=== PATIENT | female | born 1975 | race Two or more races ===

== ENCOUNTER 2019-04-16 09:25 | Emergency (ER) | payer OTHER ==
[2019-04-16] MEDS ORDERED: ONDANSETRON HCL INJ/PF 4 MG/2 ML SDV IV ONE (09:54)
[2019-04-16] MEDS ORDERED: NORMAL SALINE 1000 ML 1,000 ML IV ONE (09:54)
[2019-04-16] MEDS ORDERED: FAMOTIDINE INJ/PF 20 MG/2 ML SDV IV ONE (09:54)
--- NOTE | 2019-04-16 09:57 | ER Document Report ---
ED Medical Screen (RME) - General Chief Complaint: Vomiting Stated Complaint: VOMITING Time Seen by Provider: 04/16/19 09:47 Notes: Patient is a 43-year-old female with a history of hypertension, herniated disc, TBI, anxiety, depression who presents to the emergency department with a chief complaint of vomiting. Patient states she has vomited 4-5 times per day since Wednesday. Patient states she does not have any sick contacts. Patient states that every time she attempts to eat or drink she vomits. Patient denies diarrhea. Patient denies fever. Patient states she has had chills. Patient reports generalized abdominal pain. Patient denies urinary symptoms. Patient states she has noted very small streaks of blood in the vomit. She states she feels like this is from her irritated throat and denies blood clots or large amounts of blood in the emesis. TRAVEL OUTSIDE OF THE [place] IN LAST 30 DAYS: No - Related Data Allergies/Adverse Reactions: No Known Allergies Allergy (Verified 04/16/19 09:25) Past Medical History - Social History Chew tobacco use (# tins/day): No Frequency of alcohol use: None Drug Abuse: None - Past Medical History Cardiac Medical History: Reports: Hx Hypertension Pulmonary Medical History: Denies: Hx Tuberculosis Renal/ Medical History: Denies: Hx Peritoneal Dialysis Musculoskeltal Medical History: Reports Hx Musculoskeletal Trauma Psychiatric Medical History: Denies: Hx Depression Traumatic Medical History: Reports: Hx Traumatic Brain Injury Past Surgical History: Reports: Hx Gynecologic Surgery - ovarian cyst - Immunizations Hx Diphtheria, Pertussis, Tetanus Vaccination: Yes Physical Exam - Vital signs Vitals: Temp Pulse Resp BP Pulse Ox 98.3 F 104 H 17 133/100 H 97 04/16/19 09:31 04/16/19 09:31 04/16/19 09:31 04/16/19 09:31 04/16/19 09:31 - Respiratory Respiratory status: No respiratory distress Chest status: Nontender Breath sounds: Normal Chest palpation: Normal - Cardiovascular Rhythm: Regular Heart sounds: Normal auscultation, S1 appreciated, S2 appreciated - Abdominal Inspection: Obese Distension: No distension Bowel sounds: Normal Tenderness: Nontender Organomegaly: No organomegaly Course - Re-evaluation Re-evalutation: 04/16/19 09:57 I have greeted and performed a rapid initial assessment of this patient. A comprehensive ED assessment and evaluation of the patient, analysis of test results and completion of the medical decision making process will be conducted by additional ED providers. - Vital Signs Vital signs: Temp Pulse Resp BP Pulse Ox 98.3 F 104 H 17 133/100 H 97 04/16/19 09:31 04/16/19 09:31 04/16/19 09:31 04/16/19 09:31 04/16/19 09:31
[2019-04-16 10:25] LABS: ABSOLUTE BASOPHILS # (AUTO) 0.1 10^3/uL (0.0-0.2); ABSOLUTE LYMPHOCYTES (AUTO) 1.3 10^3/uL (0.5-4.7); ABSOLUTE MONOCYTES (AUTO) 0.7 10^3/uL (0.1-1.4); ABSOLUTE NEUT (AUTO) 8.7 10^3/uL (1.7-8.2); BASOPHILS % (AUTO) 1.2 % (0-2); EOSINOPHILS % (AUTO) 0.3 % (0-6); HEMATOCRIT 41.3 % (36.0-47.0); HEMOGLOBIN 13.8 g/dL (12.0-15.5); LYMPHOCYTES % (AUTO) 11.9 % (13-45); MEAN CORPUSCULAR HEMOGLOBIN 28.9 pg (27.0-33.4); MEAN CORPUSCULAR HGB CONC 33.5 g/dL (32.0-36.0); MEAN CORPUSCULAR VOLUME 86 fl (80-97); MONOCYTES % (AUTO) 6.2 % (3-13); PLATELET COUNT 401 10^3/uL (150-450); RED BLOOD COUNT 4.79 10^6/uL (3.72-5.28); SEGMENTED NEUTROPHILS % (AUTO) 80.4 % (42-78); TOTAL CELLS COUNTED % (AUTO) 100 %; WHITE BLOOD COUNT 10.8 10^3/uL (4.0-10.5)
[2019-04-16 10:27] LABS: APPEARANCE,URINE CLOUDY; BILIRUBIN,URINE SMALL (NEGATIVE); COLOR,URINE AMBER; GLUCOSE, URINE NEGATIVE (NEGATIVE); KETONES,URINE TRACE mg/dL (NEGATIVE); LEUKOCYTE ESTERASE,URINE SMALL (NEGATIVE); NITRITE,URINE NEGATIVE (NEGATIVE); PROTEIN,URINE 100 mg/dL (NEGATIVE); URINE SPECIFIC GRAVITY 1.026
--- NOTE | 2019-04-16 10:36 | ER Document Report ---
ED General - General Chief Complaint: Vomiting Stated Complaint: VOMITING Time Seen by Provider: 04/16/19 09:47 Primary Care Provider: KIMBERLY TAVAREZ [Primary Care Provider] - Follow up as needed TRAVEL OUTSIDE OF THE [place] IN LAST 30 DAYS: No - HPI Notes: Patient is a 43-year-old female that presents to the emergency department for chief complaint of vomiting. Patient reports 4-5 episodes of emesis for the last 2 days. Today she states she has already had about 5 episodes of emesis. Yesterday she did have one episode with bright red streaking which resolved after the one episode. She reports she gets some epigastric cramping just prior to vomiting but does not have pain when not vomiting. She denies associated fever, chills, diarrhea, dysuria, urinary frequency and lower abdominal pain. She denies concern for . Patient denies any recent medication changes, new foods or travel. Past Medical History: Hypertension, traumatic brain injury, anxiety and depres nancy Past Surgical History: Reviewed in chart Social History: Reviewed in chart Family History: Reviewed and noncontributory for presenting illness Allergies: Reviewed, see documented allergy list. REVIEW OF SYSTEMS: CONSTITUTIONAL : No fever No chills No diaphoresis No recent illness EENT: No vision changes No congestion No sore throat CARDIOVASCULAR: No chest pain No palpitations RESPIRATORY: No shortness of breath No cough No difficulty breathing GASTROINTESTINAL: abdominal pain nausea vomiting No diarrhea GENITOURINARY: No dysuria No hematuria No difficulty urinating MUSCULOSKELETAL: No back pain No leg pain No arm pain SKIN: No rashes No lesions LYMPHATIC: No swollen, enlarged glands. NEUROLOGICAL: No lightheadedness No headache No weakness No paresthesias PSYCHIATRIC: No anxiety No depression PHYSICAL EXAMINATION: Vital signs reviewed, nursing noted reviewed. GENERAL: Well-appearing, well-nourished and in no acute distress. HEAD: Atraumatic, normocephalic. EYES: Eyes appear normal, extraocular movements intact, sclera anicteric, conjunctiva are normal. ENT: nares patent, oropharynx clear without exudates. Moist mucous membranes. NECK: Normal range of motion, supple without lymphadenopathy LUNGS: Breath sounds clear to auscultation bilaterally and equal. No wheezes rales or rhonchi. HEART: Regular rate and rhythm without murmurs ABDOMEN: Soft, nontender, normoactive bowel sounds. No rebound, guarding, or rigidity. No masses appreciated. EXTREMITIES: Nontender, good range of motion, no pitting or edema. NEUROLOGICAL: No focal neurological deficits. Moves all extremities spontaneously Motor and sensory grossly intact on exam. PSYCH: Normal mood, normal affect. SKIN: Warm, Dry, normal turgor, no rashes or lesions noted on exposed skin - Related Data Allergies/Adverse Reactions: No Known Allergies Allergy (Verified 04/16/19 09:25) Past Medical History - Social History Smoking Status: Current Every Day Smoker Chew tobacco use (# tins/day): No Frequency of alcohol use: None Drug Abuse: None Family History: Reviewed & Not Pertinent Patient has suicidal ideation: No Patient has homicidal ideation: No - Past Medical History Cardiac Medical History: Reports: Hx Hypertension Pulmonary Medical History: Denies: Hx Tuberculosis Renal/ Medical History: Denies: Hx Peritoneal Dialysis Musculoskeletal Medical History: Reports Hx Musculoskeletal Trauma Psychiatric Medical History: Denies: Hx Depression Traumatic Medical History: Reports: Hx Traumatic Brain Injury Past Surgical History: Reports: Hx Gynecologic Surgery - ovarian cyst - Immunizations Hx Diphtheria, Pertussis, Tetanus Vaccination: Yes Physical Exam - Vital signs Vitals: Temp Pulse Resp BP Pulse Ox 98.3 F 104 H 17 133/100 H 97 04/16/19 09:31 04/16/19 09:31 04/16/19 09:31 04/16/19 09:31 04/16/19 09:31 Course - Re-evaluation Re-evalutation: 04/16/19 10:34 Vitals reviewed. Nursing notes reviewed. Patient is hemodynamically stable. She does not have any focal abdominal tenderness to suggest appendicitis or acute cholecystitis. Patient feels improved after receiving IV fluids, Pepcid and Zofran. Lab work was ordered in triage which shows a very mild leukocytosis at 10.8 which is likely reactive from her recent vomiting. She has a stable hemoglobin without acute anemia. She did have one episode yesterday of bright red blood in her emesis that she described as "streaking". The bleeding has since stopped and is not currently present. Patient is not having active upper GI bleeding to necessitate endoscopy at this point. The remainder of her work- up is still pending. 04/16/19 11:19 Patient's work-up is unremarkable. She does have a contaminated urine sample without symptoms of acute urinary tract infection. I do not suspect her vomiting is related to UTI however urine culture will be added and antibiotics held until culture results return. Patient will be given Zofran and Phenergan to help with her nausea at home. She has had symptomatic improvement while in the emergency room. She is otherwise hemodynamically stable. Repeat abdominal exam is still soft without focal tenderness to necessitate further imaging. Patient will follow with primary care. She was counseled on return precautions and is stable for discharge. Laboratory 04/16/19 04/16/19 04/16/19 10:11 10:11 10:11 WBC 10.8 H RBC 4.79 Hgb 13.8 Hct 41.3 MCV 86 MCH 28.9 MCHC 33.5 RDW 14.0 Plt Count 401 Seg Neutrophils % 80.4 H Lymphocytes % 11.9 L Monocytes % 6.2 Eosinophils % 0.3 Basophils % 1.2 Absolute Neutrophils 8.7 H Absolute Lymphocytes 1.3 Absolute Monocytes 0.7 Absolute Eosinophils 0.0 Absolute Basophils 0.1 Sodium 140.8 Potassium 3.7 Chloride 96 L Carbon Dioxide 33 H Anion Gap 12 BUN 14 Creatinine 0.93 Est GFR ( Amer) > 60 Est GFR (Non-Af Amer) > 60 Glucose 110 Calcium 10.6 H Total Bilirubin 0.6 Direct Bilirubin 0.3 Neonat Total Bilirubin Not Reportable Neonat Direct Bilirubin Not Reportable Neonat Indirect Bili Not Reportable AST 40 H ALT 47 Alkaline Phosphatase 104 Total Protein 7.8 Albumin 4.8 Lipase 64.7 Serum HCG, Qual NEGATIVE Urine Color Urine Appearance Urine pH Ur Specific [place] Urine Protein Urine Glucose (UA) Urine Ketones Urine Blood Urine Nitrite Urine Bilirubin Urine Urobilinogen Ur Leukocyte Esterase Urine WBC (Auto) Urine RBC (Auto) Squamous Epi Cells Auto Urine Mucus (Auto) Urine Ascorbic Acid 04/16/19 10:11 WBC RBC Hgb Hct MCV MCH MCHC RDW Plt Count Seg Neutrophils % Lymphocytes % Monocytes % Eosinophils % Basophils % Absolute Neutrophils Absolute Lymphocytes Absolute Monocytes Absolute Eosinophils Absolute Basophils Sodium Potassium Chloride Carbon Dioxide Anion Gap BUN Creatinine Est GFR ( Amer) Est GFR (Non-Af Amer) Glucose Calcium Total Bilirubin Direct Bilirubin Neonat Total Bilirubin Neonat Direct Bilirubin Neonat Indirect Bili AST ALT Alkaline Phosphatase Total Protein Albumin Lipase Serum HCG, Qual Urine Color JUDI Urine Appearance CLOUDY Urine pH 6.0 Ur Specific [place] 1.026 Urine Protein 100 H Urine Glucose (UA) NEGATIVE Urine Ketones TRACE H Urine Blood NEGATIVE Urine Nitrite NEGATIVE Urine Bilirubin SMALL H Urine Urobilinogen 4.0 H Ur Leukocyte Esterase SMALL H Urine WBC (Auto) 13 Urine RBC (Auto) 5 Squamous Epi Cells Auto 37 Urine Mucus (Auto) MANY Urine Ascorbic Acid NEGATIVE - Vital Signs Vital signs: Temp Pulse Resp BP Pulse Ox 98.3 F 104 H 17 133/100 H 97 04/16/19 09:31 04/16/19 09:31 04/16/19 09:31 04/16/19 09:31 04/16/19 09:31 - Laboratory Result Diagrams: 04/16/19 10:11 04/16/19 10:11 Laboratory results interpreted by me: 04/16/19 04/16/19 04/16/19 10:11 10:11 10:11 WBC 10.8 H Seg Neutrophils % 80.4 H Lymphocytes % 11.9 L Absolute Neutrophils 8.7 H Chloride 96 L Carbon Dioxide 33 H Calcium 10.6 H AST 40 H Urine Protein 100 H Urine Ketones TRACE H Urine Bilirubin SMALL H Urine Urobilinogen 4.0 H Ur Leukocyte Esterase SMALL H Discharge - Discharge Clinical Impression: Nausea and vomiting Qualifiers: Vomiting type: unspecified Vomiting Intractability: non-intractable Qualified Code(s): R11.2 - Nausea with vomiting, unspecified Condition: Stable Disposition: HOME, SELF-CARE Instructions: Vomiting ([facility]) Additional Instructions: Please return to the emergency department if you have any worsening, or concern of your symptoms. Please return to the emergency department if you develop chest pain, difficulty breathing, severe abdominal pain, or ongoing vomiting. Please follow-up with your primary care physician in 2-3 days and any other recommended physicians. If prescribed, take all medications as directed. If you have any questions or concerns do not hesitate to return the emergency department for evaluation. [] Prescriptions: Ondansetron [Zofran Odt 4 mg Tablet] 1 tab PO Q4H PRN #15 tab.rapdis PRN Reason: For Nausea/Vomiting Promethazine HCl [Phenergan 25 mg Tablet] 1 tab PO Q6H PRN #15 tablet PRN Reason: Referrals: [facility] [Primary [facility]] - Follow up in 3-5 days
[2019-04-16 10:40] LABS: ALBUMIN 4.8 g/dL (3.5-5.0); ALKALINE PHOSPHATASE 104 U/L (38-126); ANION GAP 12 (5-19); ASPARTATE AMINO TRANSFERASE 40 U/L (14-36); BILIRUBIN,DIRECT 0.3 mg/dL (0.0-0.4); BILIRUBIN,TOTAL 0.6 mg/dL (0.2-1.3); BLOOD UREA NITROGEN 14 mg/dL (7-20); CALCIUM 10.6 mg/dL (8.4-10.2); CARBON DIOXIDE 33 mmol/L (22-30); CHLORIDE 96 mmol/L (98-107); GLUCOSE 110 mg/dL (75-110); POTASSIUM 3.7 mmol/L (3.6-5.0); TOTAL PROTEIN 7.8 g/dL (6.3-8.2)
[2019-04-16] MEDS ORDERED: PROMETHAZINE HCL 25 MG SUPP.RECT PR ONE (10:43)
[2019-04-16 11:46] VITALS: BP 154/94
== END 2019-04-16 11:46 | disposition home or self-care (01) ==
LOC: ER 09:25
DX: R11.2 Nausea with vomiting, unspecified (principal); I10 Essential (primary) hypertension; Z87.820 Personal history of traumatic brain injury
CPT/HCPCS: 99284; 96361; 96374; 96375; 36415; 87086; 83690; 84703; 85025; 80053; 81001; J3490; J2405; J7030; S0028

== ENCOUNTER 2019-04-17 20:11 | Inpatient (IN) | payer OTHER ==
[2019-04-17] MEDS ORDERED: NORMAL SALINE 1000 ML 1,000 ML IV ONE (21:22)
--- NOTE | 2019-04-17 21:25 | ER Document Report ---
ED Medical Screen (RME) - General Chief Complaint: Vomiting Stated Complaint: VOMITING BLODD Time Seen by Provider: 04/17/19 21:21 Primary Care Provider: KIMBERLY TAVAREZ [Primary Care Provider] - Follow up as needed Notes: 43-year-old female chief complaint of vomiting since Wednesday, states she vomited over 10 times today, she states she started seeing some streaks of blood in her vomit and she became concerned. She states she has not been able to eat anything or drink anything today. She came by EMS, was given Zofran and Benadryl IV, she has not vomited since. She states she was told she might have a virus. She denies any particular area of abdominal pain, she states it hurts to take a deep breath and she has some pain across her ribs but she denies pain in her chest unless she takes a deep breath. She denies fever or diarrhea. She denies any abdominal surgeries. Past medical history of hypertension, chronic back pain. TRAVEL OUTSIDE OF THE [place] IN LAST 30 DAYS: No - Related Data Allergies/Adverse Reactions: No Known Allergies Allergy (Verified 04/16/19 09:25) Past Medical History - Past Medical History Cardiac Medical History: Reports: Hx Hypertension Pulmonary Medical History: Denies: Hx Tuberculosis Renal/ Medical History: Denies: Hx Peritoneal Dialysis Musculoskeltal Medical History: Reports Hx Musculoskeletal Trauma Psychiatric Medical History: Denies: Hx Depression Traumatic Medical History: Reports: Hx Traumatic Brain Injury Past Surgical History: Reports: Hx Gynecologic Surgery - ovarian cyst - Immunizations Hx Diphtheria, Pertussis, Tetanus Vaccination: Yes Physical Exam - Vital signs Vitals: Temp Pulse Resp BP Pulse Ox 98.3 F 92 20 145/100 H 96 04/17/19 20:27 04/17/19 20:27 04/17/19 20:27 04/17/19 20:27 04/17/19 20:27 - General General appearance: Appears well In distress: None - Abdominal Inspection: Normal Tenderness: Nontender Course - Re-evaluation Re-evalutation: I have greeted and performed a rapid initial assessment of this patient. A comprehensive ED assessment and evaluation of the patient, analysis of test results and completion of the medical decision making process will be conducted by additional ED providers. - Vital Signs Vital signs: Temp Pulse Resp BP Pulse Ox 98.3 F 92 20 145/100 H 96 04/17/19 20:27 04/17/19 20:27 04/17/19 20:27 04/17/19 20:27 04/17/19 20:27 Doctor's Discharge - Discharge Referrals: [facility] [Primary [facility]] - Follow up as needed
[2019-04-17 22:04] LABS: ABSOLUTE BASOPHILS # (AUTO) 0.1 10^3/uL (0.0-0.2); ABSOLUTE MONOCYTES (AUTO) 0.8 10^3/uL (0.1-1.4); ABSOLUTE NEUT (AUTO) 8.2 10^3/uL (1.7-8.2); EOSINOPHILS % (AUTO) 0.4 % (0-6); HEMATOCRIT 40.4 % (36.0-47.0); HEMOGLOBIN 13.5 g/dL (12.0-15.5); LYMPHOCYTES % (AUTO) 18.3 % (13-45); MEAN CORPUSCULAR HEMOGLOBIN 28.6 pg (27.0-33.4); MEAN CORPUSCULAR HGB CONC 33.4 g/dL (32.0-36.0); MEAN CORPUSCULAR VOLUME 85 fl (80-97); MONOCYTES % (AUTO) 7.2 % (3-13); PLATELET COUNT 377 10^3/uL (150-450); RED BLOOD COUNT 4.73 10^6/uL (3.72-5.28); RED CELL DISTRIBUTION WIDTH 14.6 % (11.5-14.0); SEGMENTED NEUTROPHILS % (AUTO) 73.1 % (42-78); TOTAL CELLS COUNTED % (AUTO) 100 %; WHITE BLOOD COUNT 11.2 10^3/uL (4.0-10.5)
--- NOTE | 2019-04-17 22:18 | RADIOLOGY REPORT (SQ) ---
EXAM DESCRIPTION: XR CHEST 2 VIEWS COMPLETED DATE/TME: 04/17/2019 21:22 CLINICAL HISTORY: 43 years, Female, rib pain, vomited blood COMPARISON: None. NUMBER OF VIEWS: 2 TECHNIQUE: 2 view chest LIMITATIONS: None. FINDINGS: The heart size is normal. Lungs are clear. No pneumothorax IMPRESSION: Negative chest copyright 2010 [employer]- All Rights Reserved
[2019-04-17 22:22] LABS: ALBUMIN 4.6 g/dL (3.5-5.0); ALKALINE PHOSPHATASE 108 U/L (38-126); ANION GAP 14 (5-19); ASPARTATE AMINO TRANSFERASE 45 U/L (14-36); BILIRUBIN,DIRECT 0.3 mg/dL (0.0-0.4); BILIRUBIN,TOTAL 0.5 mg/dL (0.2-1.3); BLOOD UREA NITROGEN 12 mg/dL (7-20); CALCIUM 10.3 mg/dL (8.4-10.2); CARBON DIOXIDE 26 mmol/L (22-30); CHLORIDE 97 mmol/L (98-107); GLUCOSE 93 mg/dL (75-110); POTASSIUM 3.5 mmol/L (3.6-5.0); TOTAL PROTEIN 7.5 g/dL (6.3-8.2)
[2019-04-18 00:26] LABS: APPEARANCE,URINE SLIGHTLY-CLOUDY; BILIRUBIN,URINE SMALL (NEGATIVE); COLOR,URINE AMBER; GLUCOSE, URINE NEGATIVE (NEGATIVE); KETONES,URINE 80 mg/dL (NEGATIVE); LEUKOCYTE ESTERASE,URINE TRACE (NEGATIVE); NITRITE,URINE NEGATIVE (NEGATIVE); PROTEIN,URINE 100 mg/dL (NEGATIVE); URINE SPECIFIC GRAVITY 1.029
[2019-04-18] MEDS ORDERED: LIDOCAINE 2% VISCOUS SOLN 20 ML UDCUP PO ONE (02:20)
[2019-04-18] MEDS ORDERED: MAG HYDROX/AL HYDROX/SIMETH SUSP 30 ML UDCUP PO ONE (02:20)
[2019-04-18] MEDS ORDERED: METOCLOPRAMIDE HCL ORAL SOLN 10 MG/10 ML UDCUP PO ONE (02:20)
[2019-04-18] MEDS ORDERED: FAMOTIDINE INJ/PF 20 MG/2 ML SDV IV ONE (02:23)
--- NOTE | 2019-04-18 02:23 | ER Document Report ---
ED General - General Chief Complaint: Vomiting Stated Complaint: VOMITING BLODD Time Seen by Provider: 04/17/19 21:21 Primary Care Provider: KIMBERLY TAVAREZ [Primary Care Provider] - Follow up as needed TRAVEL OUTSIDE OF THE [place] IN LAST 30 DAYS: No - HPI Notes: Patient is a 43-year-old female that presents to the emergency department for chief complaint of hematemesis. Patient has been having multiple episodes of emesis now for the last 4 days. She has had improvement with antiemetics in the emergency room and by EMS. Patient was seen in the ED yesterday and prescribed Phenergan and Zofran. She states because of transportation issues she has not been able to get her prescr iptions filled. She has had 5 or 6 more episodes of emesis today and now reports increased amount of blood in her emesis. She states it is bright red and slightly more than streaking. She denies any large blood clots. Patient reports burning in her throat and upper chest with emesis and lying flat. She denies fevers and chills. She denies abdominal pain diarrhea or black/bloody stools. Past Medical History: Hypertension, traumatic brain injury, anxiety and depression Past Surgical History: Reviewed in chart Social History: Reviewed in chart Family History: Reviewed and noncontributory for presenting illness Allergies: Reviewed, see documented allergy list. REVIEW OF SYSTEMS: CONSTITUTIONAL : No fever No chills No diaphoresis No recent illness EENT: No vision changes No congestion No sore throat CARDIOVASCULAR: No chest pain No palpitations RESPIRATORY: No shortness of breath No cough No difficulty breathing GASTROINTESTINAL: No abdominal pain nausea vomiting Hematemesis No diarrhea GENITOURINARY: No dysuria No hematuria No difficulty urinating MUSCULOSKELETAL: No back pain No leg pain No arm pain SKIN: No rashes No lesions LYMPHATIC: No swollen, enlarged glands. NEUROLOGICAL: No lightheadedness No headache No weakness No paresthesias PSYCHIATRIC: No anxiety No depression PHYSICAL EXAMINATION: Vital signs reviewed, nursing noted reviewed. GENERAL: Well-appearing, well-nourished and in no acute distress. HEAD: Atraumatic, normocephalic. EYES: Eyes appear normal, extraocular movements intact, sclera anicteric, conjunctiva are normal. ENT: nares patent, oropharynx clear without exudates. Dry mucous membranes. NECK: No crepitus, normal range of motion, supple without lymphadenopathy LUNGS: No crepitus or anterior chest wall tenderness, breath sounds clear to auscultation bilaterally and equal. No wheezes rales or rhonchi. HEART: Regular rate and rhythm without murmurs ABDOMEN: Soft, nontender, normoactive bowel sounds. No rebound, guarding, or rigidity. No masses appreciated. EXTREMITIES: Nontender, good range of motion, no pitting or edema. NEUROLOGICAL: No focal neurological deficits. Moves all extremities spontaneously Motor and sensory grossly intact on exam. PSYCH: Normal mood, normal affect. SKIN: Warm, Dry, normal turgor, no rashes or lesions noted on exposed skin - Related Data Allergies/Adverse Reactions: No Known Allergies Allergy (Verified 04/16/19 09:25) Past Medical History - Social History Smoking Status: Never Smoker Family History: Reviewed & Not Pertinent - Past Medical History Cardiac Medical History: Reports: Hx Hypertension Pulmonary Medical History: Denies: Hx Tuberculosis Renal/ Medical History: Denies: Hx Peritoneal Dialysis Musculoskeletal Medical History: Reports Hx Musculoskeletal Trauma Psychiatric Medical History: Denies: Hx Depression Traumatic Medical History: Reports: Hx Traumatic Brain Injury Past Surgical History: Reports: Hx Gynecologic Surgery - ovarian cyst - Immunizations Hx Diphtheria, Pertussis, Tetanus Vaccination: Yes Physical Exam - Vital signs Vitals: Temp Pulse Resp BP Pulse Ox 98.3 F 92 20 145/100 H 96 04/17/19 20:27 04/17/19 20:27 04/17/19 20:27 04/17/19 20:27 04/17/19 20:27 Course - Re-evaluation Re-evalutation: 04/18/19 02:21 Vitals reviewed. Nursing notes reviewed. Patient had repeat lab work today which shows a slight elevation in WBC count. She has no significant anemia. The remainder of her work-up is unremarkable. She has continued to vomit and is now having increased bleeding. Patient has had emesis since receiving antiemetics in the emergency room. At this point I recommend admission to the hospital for intractable vomiting and increasing upper GI bleeding. The source of her GI bleed is likely [place] tear and she has no symptoms to suggest complete esophageal perforation. Patient is in agreement with observation in the hospital. Patient's care discussed with Dr. Hein who accepts admission. Patient's care also discussed with Dr. Adelia who will follow and perform EGD if required. Laboratory 04/17/19 04/17/19 04/18/19 21:50 21:50 00:01 WBC 11.2 H RBC 4.73 Hgb 13.5 Hct 40.4 MCV 85 MCH 28.6 MCHC 33.4 RDW 14.6 H Plt Count 377 Seg Neutrophils % 73.1 Lymphocytes % 18.3 Monocytes % 7.2 Eosinophils % 0.4 Basophils % 1.0 Absolute Neutrophils 8.2 Absolute Lymphocytes 2.0 Absolute Monocytes 0.8 Absolute Eosinophils 0.0 Absolute Basophils 0.1 Sodium 137.1 Potassium 3.5 L Chloride 97 L Carbon Dioxide 26 Anion Gap 14 BUN 12 Creatinine 0.82 Est GFR ( Amer) > 60 Est GFR (Non-Af Amer) > 60 Glucose 93 Calcium 10.3 H Total Bilirubin 0.5 Direct Bilirubin 0.3 Neonat Total Bilirubin Not Reportable Neonat Direct Bilirubin Not Reportable Neonat Indirect Bili Not Reportable AST 45 H ALT 84 Alkaline Phosphatase 108 Total Protein 7.5 Albumin 4.6 Lipase 70.0 Urine Color JUDI Urine Appearance SLIGHTLY-CLOUDY Urine pH 6.0 Ur Specific [place] 1.029 Urine Protein 100 H Urine Glucose (UA) NEGATIVE Urine Ketones 80 H Urine Blood NEGATIVE Urine Nitrite NEGATIVE Urine Bilirubin SMALL H Urine Urobilinogen 4.0 H Ur Leukocyte Esterase TRACE H Urine WBC (Auto) 4 Urine RBC (Auto) 4 Urine Bacteria (Auto) TRACE Squamous Epi Cells Auto 9 Urine Mucus (Auto) MANY Urine Ascorbic Acid NEGATIVE Urine HCG, Qual NEGATIVE Chest X-Ray 04/17/19 21:22 IMPRESSION: Negative chest copyright 2011 [employer]- All Rights Reserved 04/18/19 03:13 - Vital Signs Vital signs: Temp Pulse Resp BP Pulse Ox 98.3 F 92 20 145/100 H 96 04/17/19 20:27 04/17/19 20:27 04/17/19 20:27 04/17/19 20:27 04/17/19 20:27 - Laboratory Result Diagrams: 04/17/19 21:50 04/17/19 21:50 Laboratory results interpreted by me: 04/17/19 04/17/19 04/18/19 21:50 21:50 00:01 WBC 11.2 H RDW 14.6 H Potassium 3.5 L Chloride 97 L Calcium 10.3 H AST 45 H Urine Protein 100 H Urine Ketones 80 H Urine Bilirubin SMALL H Urine Urobilinogen 4.0 H Ur Leukocyte Esterase TRACE H Discharge - Discharge Clinical Impression: Hematemesis Qualifiers: Nausea presence: with nausea Qualified Code(s): K92.0 - Hematemesis Intractable vomiting Qualifiers: Vomiting type: unspecified Nausea presence: with nausea Qualified Code(s): R11.2 - Nausea with vomiting, unspecified Condition: Stable Disposition: ADMITTED INPATIENT Admitting Provider: Angel Luis (Hospitalist) Unit Admitted: Telemetry Referrals: [facility] [Primary [facility]] - Follow up as needed
[2019-04-18] MEDS ORDERED: PANTOPRAZOLE SODIUM 40 MG VIAL IV ONE (04:27)
[2019-04-18] MEDS ORDERED: PANTOPRAZOLE SODIUM 40 MG VIAL IV SCH (04:30)
[2019-04-18] MEDS ORDERED: GLUCAGON,HUMAN RECOMB 1 MG INJ SUBCUT PRN (04:31)
[2019-04-18] MEDS ORDERED: ONDANSETRON HCL INJ/PF 4 MG/2 ML SDV IV PRN (04:31)
[2019-04-18] MEDS ORDERED: DEXTROSE 50%-WATER 25 GM/50 ML DISP.SYRIN IV PRN ×2 (04:31)
[2019-04-18] MEDS ORDERED: MAGNESIUM HYDROXIDE SUSP 30 ML UDCUP PO PRN (04:31)
[2019-04-18] MEDS ORDERED: ONDANSETRON 4 MG TAB.RAPDIS PO PRN (04:31)
[2019-04-18] MEDS ORDERED: MAG HYDROX/AL HYDROX/SIMETH SUSP 30 ML UDCUP PO PRN (04:31)
[2019-04-18] MEDS ORDERED: PROMETHAZINE HCL INJ 25 MG/1 ML VIAL IV PRN ×2 (04:31→13:09)
[2019-04-18] MEDS ORDERED: ACETAMINOPHEN 325 MG TABLET PO PRN (04:31)
[2019-04-18] MEDS ORDERED: DEXTROSE 40% GEL 15 GM TUBE PO PRN ×2 (04:31)
[2019-04-18] MEDS: NORMAL SALINE 1000 ML 1,000 ML IV PRN (05:30)
[2019-04-18] MEDS ORDERED: PANTOPRAZOLE SODIUM 40 MG VIAL IV PRN (06:29)
--- NOTE | 2019-04-18 06:39 | PDOC H&P ---
History of Present Illness Admission Date/PCP: 04/18/19 03:18 [facility] Patient complains of: Intractable nausea and vomiting, vomiting blood History of Present Illness: TOMI WALKER is a 43 year old obese -Burmese female with history of multiple medical problems that will be mentioned below who presented to the emergency room with acute onset of ataxia nausea and vomiting since Wednesday with about 4-5 episodes per day on Wednesday and about 12 episodes on Wednesday. The patient admitted to having hematemesis with associated bright red bleeding per rectum as well. She has been having heartburn and denies any diarrhea or melena or bright red bleeding per rectum. No fever or chills. No chest pain or dyspnea palpitations, headache or dizziness or blurred vision. Upon presentation to the emergency room blood pressure was elevated 145/100 with a pulse of 92 respiratory to 20 temperature 98.3 and pulse oximetry 96% on room air. Labs revealed Minimal leukocytosis of 11.2 and borderline potassium of 3.5 with chloride of 97 and calcium 10.3 AST 45 and CMP 1. Otherwise within normal. Urinalysis showed trace leukocyte esterase with 4 WBCs and 4 RBCs trace bacteria and negative nitrite with 80 ketones and 114. Portable chest x-ray showed no acute cardiopulmonary disease. The patient was given hydration with IV normal saline as well as IV Protonix and Reglan and GI cocktail. Next Adelia was notified by the patient and was agreeable with EGD. She will be admitted to medical monitor bed for further evaluation and management. Past Medical History Past Medical History: #1 depression 2. Migraine 3. Insomnia 4. Tobacco abuse 5. Hypertension 6. Lumbar herniated disc with chronic back pain 7. Traumatic brain injury with memory loss Cardiac Medical History: Reports: Hypertension Pulmonary Medical History: Denies: Tuberculosis Psychiatric Medical History: Denies: Depression Traumatic Medical History: Reports: Traumatic Brain Injury Past Surgical History Past Surgical History: Reports: Other - Laparoscopic left ovarian cystectomy that was benign Social History Smoking Status: Never Smoker Frequency of Alcohol Use: None Hx Recreational Drug Use: No Hx Prescription Drug Abuse: No Family History Family History: Malignancy - Of breast cancer in her mother Parental Family History Reviewed: Yes Children Family History Reviewed: Yes Sibling(s) Family History Reviewed.: Yes Medication/Allergy Home Medications: Hydrocodone Bit/Acetaminophen [Hydrocodon-Acetaminophn 10-325] 1 each PO Q4 PRN 01/05/14 Ondansetron [Zofran Odt 4 mg Tablet] 1 tab PO Q4H PRN #15 tab.rapdis 04/16/19 Promethazine HCl [Phenergan 25 mg Tablet] 1 tab PO Q6H PRN #15 tablet 04/16/19 Allergies/Adverse Reactions: No Known Allergies Allergy (Verified 04/16/19 09:25) Review of Systems Review of Systems: As per history of present illness. All pertinent systems were reviewed above. Constitutional, HEENT, cardiovascular, respiratory, GI, , musculoskeletal, neuro, psychiatric, endocrine, integumentary and hematologic systems were reviewed and are otherwise negative/unremarkable except for positive findings mentioned above in the HPI. Physical Exam Vital Signs: Temp Pulse Resp BP Pulse Ox 98.3 F 92 12 147/96 H 97 04/17/19 20:27 04/17/19 20:27 04/18/19 05:30 04/18/19 05:30 04/18/19 05:30 Intake & Output 04/16/19 04/17/19 04/18/19 06:59 06:59 06:59 Intake Total 1000 Balance 1000 Weight 39.2 kg Exam: Generally: Pleasant middle-aged obese -Burmese female in no acute distress Vital signs-as listed Head - atraumatic, normocephalic. Pupils - equal, round and reactive to light and accommodation. Extraocular movements are intact. No scleral icterus. Oropharynx - moist mucous membranes and tongue. No pharyngeal erythema or exudate. Neck - supple. No JVD. Carotid pulses 2+ bilaterally. No carotid bruits. No palpable thyromegaly or lymphadenopathy. Cardiovascular - regular rate and rhythm. Normal S1 and S2. No murmurs, gallops or rubs. Lungs - clear to auscultation bilaterally. Abdomen - soft with mild epigastric tenderness without rebound tenderness guarding or rigidity. Positive bowel sounds. No palpable organomegaly or masses. Extremities - no pitting edema, clubbing or cyanosis. Neuro - grossly non-focal. Skin - no rashes. Breast, pelvic and rectal - deferred Results Laboratory Results: 04/17/19 21:50 04/17/19 21:50 04/17/19 04/17/19 04/18/19 21:50 21:50 00:01 WBC 11.2 H RBC 4.73 Hgb 13.5 Hct 40.4 MCV 85 MCH 28.6 MCHC 33.4 RDW 14.6 H Plt Count 377 Seg Neutrophils % 73.1 Lymphocytes % 18.3 Monocytes % 7.2 Eosinophils % 0.4 Basophils % 1.0 Absolute Neutrophils 8.2 Absolute Lymphocytes 2.0 Absolute Monocytes 0.8 Absolute Eosinophils 0.0 Absolute Basophils 0.1 Sodium 137.1 Potassium 3.5 L Chloride 97 L Carbon Dioxide 26 Anion Gap 14 BUN 12 Creatinine 0.82 Est GFR ( Amer) > 60 Est GFR (Non-Af Amer) > 60 Glucose 93 Calcium 10.3 H Total Bilirubin 0.5 AST 45 H Alkaline Phosphatase 108 Total Protein 7.5 Albumin 4.6 Lipase 70.0 Urine Color JUDI Urine Appearance SLIGHTLY-CLOUDY Urine pH 6.0 Ur Specific Comfort 1.029 Urine Protein 100 H Urine Glucose (UA) NEGATIVE Urine Ketones 80 H Urine Blood NEGATIVE Urine Nitrite NEGATIVE Ur Leukocyte Esterase TRACE H Urine WBC (Auto) 4 Urine RBC (Auto) 4 Blood Type Antibody Screen 04/18/19 05:19 WBC RBC Hgb Hct MCV MCH MCHC RDW Plt Count Seg Neutrophils % Lymphocytes % Monocytes % Eosinophils % Basophils % Absolute Neutrophils Absolute Lymphocytes Absolute Monocytes Absolute Eosinophils Absolute Basophils Sodium Potassium Chloride Carbon Dioxide Anion Gap BUN Creatinine Est GFR ( Amer) Est GFR (Non-Af Amer) Glucose Calcium Total Bilirubin AST Alkaline Phosphatase Total Protein Albumin Lipase Urine Color Urine Appearance Urine pH Ur Specific Comfort Urine Protein Urine Glucose (UA) Urine Ketones Urine Blood Urine Nitrite Ur Leukocyte Esterase Urine WBC (Auto) Urine RBC (Auto) Blood Type O POSITIVE Antibody Screen NEGATIVE Impressions: Chest X-Ray 04/17/19 21:22 IMPRESSION: Negative chest copyright 2011 [employer]- All Rights Reserved Assessment and Plan - Diagnosis (1) Intractable nausea and vomiting Is this a current diagnosis for this admission?: Yes Plan: The patient will be admitted to medical monitor bed. She will be placed on antiemetics. Dr. Delvalle was consulted for EGD. PPI therapy will be provided. (2) Upper GI bleeding Is this a current diagnosis for this admission?: Yes Plan: We will follow serial hemoglobin and hematocrits. She was given 80 mg of IV Protonix and will be placed on Protonix drip. This could be related to Jennie- Mckeon tear from recurrent nausea and vomiting as well as duodenitis or gastritis, duodenal or gastric erosions or ulcers. (3) Hypertension Is this a current diagnosis for this admission?: Yes Plan: The patient will be placed on as needed IV labetalol. (4) Migraine Is this a current diagnosis for this admission?: Yes Plan: No current migraine attacks. (5) DVT prophylaxis Is this a current diagnosis for this admission?: Yes Plan: SCDs. Medical prophylaxis currently contraindicated due to her GI bleeding. - Time Time Spent with patient: 35 or more minutes Medications reviewed and adjusted accordingly: Yes Anticipated discharge: Home Within: within 72 hours - Inpatient Certification Based on my medical assessment, after consideration of the patient's comorbidities, presenting symptoms, or acuity I expect that the services needed warrant INPATIENT care.: Yes I certify that my determination is in accordance with my understanding of Medicare's requirements for reasonable and necessary INPATIENT services [42 CFR 412.3e].: Yes Medical Necessity: Risk of Complication if Not Cared For in Hospital, Risk of Diagnosis Which Will Require Inpatient Eval/Care/Monitoring, Other - Need for EGD Post Hospital Care: D/C or Transfer Summary - Plan Summary Plan Summary: The plan of care was discussed in details with the patient. I answered all questions. The patient agreed to proceed with the above-mentioned plan. The patient is presumably full code. This note was created by [employer] dictating software and may contain typo errors that may have not been proofread.
[2019-04-18] MEDS: NORMAL SALINE 100 ML with PANTOPRAZOLE SODIUM 80 MG IV PRN ×4 (06:44→20:01)
[2019-04-18] MEDS ORDERED: LABETALOL HCL INJ 20 MG/4 ML DISP.SYRIN IV PRN ×2 (06:44→16:16)
--- NOTE | 2019-04-18 06:48 | PDOC CONSULTATION ---
Consultation Consult Date: 04/18/19 Provider Consulted: VALERIA MARCELO History of Present Illness Admission Date/PCP: 04/18/19 03:18 [facility] Patient complains of: vomiting History of Present Illness: TOMI WALKER is a 43 year old female with hx of HTN,depression,insomnia, seen in the ED fro persistent vomiting, first time ever, had small amount of hematemesis, denies abdominal pain, fever, other GI symptons, has never had EGD, colonoscopy, does not have sx of GERD and does not use antiacids. Blood work and C-Xray negative. Past Medical History Cardiac Medical History: Reports: Hypertension Pulmonary Medical History: Denies: Tuberculosis Psychiatric Medical History: Denies: Depression Traumatic Medical History: Reports: Traumatic Brain Injury Past Surgical History Past Surgical History: Reports: Other - Laparoscopic left ovarian cystectomy that was benign Social History Smoking Status: Never Smoker Frequency of Alcohol Use: None Hx Recreational Drug Use: No Hx Prescription Drug Abuse: No Family History Family History: Malignancy - Of breast cancer in her mother Parental Family History Reviewed: No Children Family History Reviewed: No Sibling(s) Family History Reviewed.: No Medication/Allergy Home Medications: Hydrocodone Bit/Acetaminophen [Hydrocodon-Acetaminophn 10-325] 1 each PO Q4 PRN 01/05/14 Ondansetron [Zofran Odt 4 mg Tablet] 1 tab PO Q4H PRN #15 tab.rapdis 04/16/19 Promethazine HCl [Phenergan 25 mg Tablet] 1 tab PO Q6H PRN #15 tablet 04/16/19 Allergies/Adverse Reactions: No Known Allergies Allergy (Verified 04/16/19 09:25) Physical Exam Vital Signs: Temp Pulse Resp BP Pulse Ox 98.3 F 92 12 147/96 H 97 04/17/19 20:27 04/17/19 20:27 04/18/19 05:30 04/18/19 05:30 04/18/19 05:30 Intake & Output 04/16/19 04/17/19 04/18/19 06:59 06:59 06:59 Intake Total 1000 Balance 1000 Weight 107 kg General appearance: PRESENT: no acute distress Head exam: PRESENT: atraumatic Eye exam: PRESENT: EOMI, PERRLA Mouth exam: PRESENT: dry mucosa Neck exam: PRESENT: full ROM Respiratory exam: PRESENT: clear to auscultation skyler Cardiovascular exam: PRESENT: RRR GI/Abdominal exam: PRESENT: normal bowel sounds, soft, other - no tenderness Rectal exam: PRESENT: deferred Extremities exam: PRESENT: full ROM Musculoskeletal exam: PRESENT: full ROM Neurological exam: PRESENT: alert, altered, oriented to time, oriented to situation Results Laboratory Results: 04/17/19 21:50 04/17/19 21:50 04/17/19 04/17/19 04/18/19 21:50 21:50 00:01 WBC 11.2 H RBC 4.73 Hgb 13.5 Hct 40.4 MCV 85 MCH 28.6 MCHC 33.4 RDW 14.6 H Plt Count 377 Seg Neutrophils % 73.1 Lymphocytes % 18.3 Monocytes % 7.2 Eosinophils % 0.4 Basophils % 1.0 Absolute Neutrophils 8.2 Absolute Lymphocytes 2.0 Absolute Monocytes 0.8 Absolute Eosinophils 0.0 Absolute Basophils 0.1 Sodium 137.1 Potassium 3.5 L Chloride 97 L Carbon Dioxide 26 Anion Gap 14 BUN 12 Creatinine 0.82 Est GFR ( Amer) > 60 Est GFR (Non-Af Amer) > 60 Glucose 93 Calcium 10.3 H Total Bilirubin 0.5 AST 45 H Alkaline Phosphatase 108 Total Protein 7.5 Albumin 4.6 Lipase 70.0 Urine Color JUDI Urine Appearance SLIGHTLY-CLOUDY Urine pH 6.0 Ur Specific [place] 1.029 Urine Protein 100 H Urine Glucose (UA) NEGATIVE Urine Ketones 80 H Urine Blood NEGATIVE Urine Nitrite NEGATIVE Ur Leukocyte Esterase TRACE H Urine WBC (Auto) 4 Urine RBC (Auto) 4 Blood Type Antibody Screen 04/18/19 05:19 WBC RBC Hgb Hct MCV MCH MCHC RDW Plt Count Seg Neutrophils % Lymphocytes % Monocytes % Eosinophils % Basophils % Absolute Neutrophils Absolute Lymphocytes Absolute Monocytes Absolute Eosinophils Absolute Basophils Sodium Potassium Chloride Carbon Dioxide Anion Gap BUN Creatinine Est GFR ( Amer) Est GFR (Non-Af Amer) Glucose Calcium Total Bilirubin AST Alkaline Phosphatase Total Protein Albumin Lipase Urine Color Urine Appearance Urine pH Ur Specific [place] Urine Protein Urine Glucose (UA) Urine Ketones Urine Blood Urine Nitrite Ur Leukocyte Esterase Urine WBC (Auto) Urine RBC (Auto) Blood Type O POSITIVE Antibody Screen NEGATIVE Impressions: Chest X-Ray 04/17/19 21:22 IMPRESSION: Negative chest copyright 2011 [employer]- All Rights Reserved Assessment & Plan - Diagnosis (1) Intractable nausea and vomiting Is this a current diagnosis for this admission?: Yes - Plan Summary Plan Summary: A/ Intractable vomiting in healthy patient Negative blood work negative Chest X-Ray P/ EGD with bx today by Dr. Mitchell US abdomen NPO IVF
--- NOTE | 2019-04-18 11:47 | Progress Note ---
Provider Note Provider Note: This is a 43-year-old female with intractable nausea and vomiting, present for the last 5 days. The patient denies significant amounts of abdominal pain. I have discussed with her the risks and benefits of EGD. The patient has agreed to the procedure. Informed consent was obtained, and all questions were answer ed.
[2019-04-18] MEDS ORDERED: PROPOFOL INJ 200 MG/20 ML VIAL IV ONE (12:21)
[2019-04-18] MEDS ORDERED: ONDANSETRON HCL INJ/PF 4 MG/2 ML SDV ONE (12:35)
[2019-04-18] MEDS ORDERED: MIDAZOLAM 2 MG/2 ML INJ ONE (12:35)
--- NOTE | 2019-04-18 13:06 | Operative Report ---
Nonrecallable Operative Report DATE OF SURGERY: 04/18/19 PREOPERATIVE DIAGNOSIS: Intractable nausea and vomiting POSTOPERATIVE DIAGNOSIS: 1. Same as above. 2. Severe antral gastritis. 3. Small, sliding hiatal hernia. 4. Mild reflux esophagitis. OPERATION: EGD with biopsy. SURGEON: EMERITA LAW ANESTHESIA: GA TISSUE REMOVED OR ALTERED: 1. Antral biopsy. 2. Distal esophagus biopsy. COMPLICATIONS: None apparent ESTIMATED BLOOD LOSS: Minimal PROCEDURE: Procedure in detail: After informed consent was obtained, the patient was brought to the operating room and laid in the left lateral decubitus position. The endoscope was passed down the oropharynx, down the esophagus, and into the stomach. The stomach was insufflated with air. Immediately, there was noted to be gastritis throughout the antrum of the stomach. The scope was pushed through the pylorus, into the first and second portions of the duodenum. The duodenum appeared normal. The scope was pulled back into the antrum. A biopsy was taken at the antrum to rule out H. pylori. The scope was pulled into the gastric body, where gastritis continued. A retroflexion maneuver was performed in the gastric body. This demonstrated a small, sliding hiatal hernia. The scope was pulled up into the hiatal hernia, where mild reflux esophagitis was identified. A biopsy was taken at the distal esophagus. The scope was then withdrawn up the remainder of the esophagus. The remainder of the esophagus was smooth in contour without masses, lesions, ulcerations, or other abnormalities. The scope was then removed from the oropharynx, and the procedure was concluded. All sponge, instrument, and needle counts were correct. Condition: Stable.
[2019-04-18] MEDS ORDERED: MEPERIDINE HCL/PF INJ 25 MG/1 ML DISP.SYRIN IV PRN (13:09)
[2019-04-18] MEDS ORDERED: FENTANYL CITRATE INJ/PF 100 MCG/2 ML AMPUL IV PRN ×3 (13:09)
[2019-04-18] MEDS ORDERED: DIPHENHYDRAMINE HCL 50 MG/ML VIAL IV PRN (13:09)
--- NOTE | 2019-04-18 17:28 | RADIOLOGY REPORT (SQ) ---
EXAM DESCRIPTION: U/S ABDOMEN COMPLETE W/O DOP COMPLETED DATE/TIME: 04/18/2019 5:12 pm REASON FOR STUDY: intractable vomiting w/ hematemesis COMPARISON: None. TECHNIQUE: Dynamic and static grayscale images acquired of the abdomen and recorded on PACS. Additio nal selected color Doppler and spectral images recorded. Note: Study does not meet criteria for complete doppler/duplex scan LIMITATIONS: None. FINDINGS: PANCREAS: No masses. The tail was not seen. LIVER: Slightly increased echogenicity. No mass. LIVER VASCULATURE: Normal directional flow of the main portal vein and hepatic veins. GALLBLADDER: No stones. Normal wall thickness. No pericholecystic fluid. ULTRASOUND-DETECTED HURTADO'S SIGN: Negative. INTRAHEPATIC DUCTS AND COMMON DUCT: CBD and intrahepatic ducts normal caliber. No filling defects. INFERIOR VENA CAVA: Normal flow. AORTA: No aneurysm. The distal aorta was not seen. RIGHT KIDNEY: Normal size, 11.9 cm. Normal echogenicity. No solid or suspicious masses. No hyd ronephrosis. No calcifications. LEFT KIDNEY: Normal size, 11.7 cm. Normal echogenicity. No solid or suspicious masses. No hydr onephrosis. No calcifications. SPLEEN: Normal size, 10.4 cm. No solid masses. PERITONEAL AND PLEURAL SPACES: No ascites or effusions. OTHER: No other significant finding. IMPRESSION: NORMAL ABDOMINAL ULTRASOUND. TECHNICAL DOCUMENTATION: JOB ID: [id number] [employer]- All Rights Reserved Reading location - IP/workstation name: [email or web address]
[2019-04-18] MEDS: SUCRALFATE 1 GM TABLET PO SCH (21:33)
--- NOTE | 2019-04-18 22:00 | Progress Note ---
Provider Note Provider Note: Patient was found to have severe gastritis. This could certainly explain her nausea and vomiting. Her gallbladder ultrasound was normal. I do not believe the patient will require any surgical intervention. I would recommend continuation of her PPI as well as Carafate at discharge. Follow-up with [facility] in 2 to 3 weeks. Surgery will sign off at this time. Please renotify with any questions or concerns.
[2019-04-19] MEDS: NORMAL SALINE 1000 ML 1,000 ML IV PRN ×2 (02:44→09:13)
[2019-04-19] MEDS: NORMAL SALINE 100 ML with PANTOPRAZOLE SODIUM 80 MG IV PRN ×2 (05:52)
[2019-04-19 08:06] LABS: ABSOLUTE BASOPHILS # (AUTO) 0.1 10^3/uL (0.0-0.2); ABSOLUTE EOSINOPHILS # (AUTO) 0.1 10^3/uL (0.0-0.6); ABSOLUTE LYMPHOCYTES (AUTO) 1.5 10^3/uL (0.5-4.7); ABSOLUTE MONOCYTES (AUTO) 0.5 10^3/uL (0.1-1.4); ABSOLUTE NEUT (AUTO) 4.3 10^3/uL (1.7-8.2); BASOPHILS % (AUTO) 0.8 % (0-2); HEMATOCRIT 35.3 % (36.0-47.0); HEMOGLOBIN 11.9 g/dL (12.0-15.5); LYMPHOCYTES % (AUTO) 23.6 % (13-45); MEAN CORPUSCULAR HGB CONC 33.8 g/dL (32.0-36.0); MEAN CORPUSCULAR VOLUME 86 fl (80-97); MONOCYTES % (AUTO) 8.2 % (3-13); PLATELET COUNT 283 10^3/uL (150-450); RED BLOOD COUNT 4.12 10^6/uL (3.72-5.28); RED CELL DISTRIBUTION WIDTH 14.4 % (11.5-14.0); SEGMENTED NEUTROPHILS % (AUTO) 66.4 % (42-78); TOTAL CELLS COUNTED % (AUTO) 100 %; WHITE BLOOD COUNT 6.5 10^3/uL (4.0-10.5)
[2019-04-19] MEDS: SUCRALFATE 1 GM TABLET PO SCH ×2 (08:22→12:10)
[2019-04-19 08:35] LABS: ALBUMIN 3.7 g/dL (3.5-5.0); ALKALINE PHOSPHATASE 89 U/L (38-126); ANION GAP 11 (5-19); ASPARTATE AMINO TRANSFERASE 29 U/L (14-36); BILIRUBIN,DIRECT 0.3 mg/dL (0.0-0.4); BILIRUBIN,TOTAL 0.5 mg/dL (0.2-1.3); BLOOD UREA NITROGEN 5 mg/dL (7-20); CARBON DIOXIDE 27 mmol/L (22-30); CHLORIDE 98 mmol/L (98-107); GLUCOSE 81 mg/dL (75-110); POTASSIUM 3.3 mmol/L (3.6-5.0); TOTAL PROTEIN 6.2 g/dL (6.3-8.2)
--- NOTE | 2019-04-19 13:22 | Progress Note Acknowledgement ---
Progress Note Acknowledgement Progess Note Acknowledgement: I, the undersigned member of the medical staff with appropriate privileges and with supervisory authority over [ PAC ], a dependent practice allied health professional, acknowledge that I have reviewed the progress notes entered on this patient, and in my professional judgment believe that the assessment made and/or any care evidenced was appropriate
--- NOTE | 2019-04-19 13:27 | PDOC PROGRESS REPORT ---
Subjective Progress Note for:: 04/19/19 Subjective:: 04/19/2019 yesterday patient underwent a upper endoscopy with antral biopsy and distal esophagus biopsy by general surgery. Postoperative diagnosis was severe antral gastritis as well as a small sliding hiatal hernia and mild reflux esophagitis. General surgery recommended continuation of her PPI as well as Carafate at the time of discharge. Follow-up with [facility] in 2 to 3 weeks. Patient is medically stable this morning on rounds vital signs are stable. Temperature 98.6 blood pressure slightly elevated 158/96 saturation oxygen 98% on room air White count today is gone down to 6.5 H&H is stable 11.9 35.3, electrolytes are normal. Patient is currently taking Carafate 1 g p.o. before meals and at bedtime, tonics 80 mg IV daily patient denies pain Reason For Visit: UPPER GI BLEEDING, INTRACTABLE NAUSEA AND VOMITING Physical Exam Vital Signs: Temp Pulse Resp BP Pulse Ox 98.6 F 81 18 158/96 H 98 04/19/19 11:06 04/19/19 11:06 04/19/19 11:06 04/19/19 11:06 04/19/19 11:06 Intake & Output 04/18/19 04/19/19 04/20/19 06:59 06:59 06:59 Intake Total 1000 1900 1128 Output Total 2400 Balance 1000 -500 1128 Weight 107 kg 110.6 kg General appearance: PRESENT: no acute distress, well-developed, well-nourished Respiratory exam: PRESENT: clear to auscultation skyler. ABSENT: rales, rhonchi, wheezes Cardiovascular exam: PRESENT: RRR. ABSENT: diastolic murmur, rubs, systolic murmur GI/Abdominal exam: PRESENT: normal bowel sounds, soft. ABSENT: distended, guarding, mass, organolmegaly, rebound, tenderness Neurological exam: PRESENT: alert, awake, oriented to person, oriented to place, oriented to time, oriented to situation, CN II-XII grossly intact. ABSENT: motor sensory deficit Psychiatric exam: PRESENT: appropriate affect, normal mood. ABSENT: homicidal ideation, suicidal ideation Results Laboratory Results: 04/19/19 07:40 04/19/19 07:40 04/19/19 04/19/19 07:40 07:40 WBC 6.5 RBC 4.12 Hgb 11.9 L Hct 35.3 L MCV 86 MCH 29.0 MCHC 33.8 RDW 14.4 H Plt Count 283 Seg Neutrophils % 66.4 Lymphocytes % 23.6 Monocytes % 8.2 Eosinophils % 1.0 Basophils % 0.8 Absolute Neutrophils 4.3 Absolute Lymphocytes 1.5 Absolute Monocytes 0.5 Absolute Eosinophils 0.1 Absolute Basophils 0.1 Sodium 135.9 L Potassium 3.3 L Chloride 98 Carbon Dioxide 27 Anion Gap 11 BUN 5 L Creatinine 0.76 Est GFR ( Amer) > 60 Est GFR (Non-Af Amer) > 60 Glucose 81 Calcium 9.0 Total Bilirubin 0.5 AST 29 Alkaline Phosphatase 89 Total Protein 6.2 L Albumin 3.7 Impressions: Chest X-Ray 04/17/19 21:22 IMPRESSION: Negative chest copyright 2011 [facility]- All Rights Reserved Abdomen Ultrasound 04/18/19 00:00 IMPRESSION: NORMAL ABDOMINAL ULTRASOUND. Assessment and Plan - Diagnosis (1) Gastritis Is this a current diagnosis for this admission?: Yes Plan: 2118 patient is currently on Protonix IV and Carafate though (2) Intractable vomiting Qualifiers: Vomiting type: unspecified Nausea presence: with nausea Qualified Code(s): R11.2 - Nausea with vomiting, unspecified Is this a current diagnosis for this admission?: Yes Plan: 2118 patient was given Zofran this morning for nausea but no vomiting. Plan to discharge patient tomorrow - Time Time Spent with patient: 25-34 minutes
[2019-04-19 14:33] VITALS: BP 147/96
--- NOTE | 2019-04-19 17:44 | PDOC DISCHARGE SUMMARY ---
General - Admit/Disc Date/PCP Admission Date/Primary Care Provider: 04/18/19 03:[facility] Patient admitted on 04/18/2019 possible upper GI bleed Discharge Date: 04/19/19 - Discharge Diagnosis (1) Gastritis Is this a current diagnosis for this admission?: Yes Summary: Patient had an upper endoscopy yesterday which showed antral gastritis as well as a small sliding hiatal hernia. According to surgery they felt that the gastritis was a cause of her hemoptysis (2) Intractable vomiting Is this a current diagnosis for this admission?: Yes Summary: Intractable vomiting is coming from her gastritis and GERD. Was controlled with Protonix Zofran and Phenergan. At the time of discharge patient is eating a regular diet - Additional Information Resuscitation Status: Full Code Discharge Diet: Full Liquids, Other (Comments) Discharge Activity: Activity As Tolerated Prescriptions: Sucralfate [Carafate 1 gm Tablet] 1 gm PO ACHS 30 Days #120 tablet Promethazine HCl [Phenergan 25 mg Tablet] 25 mg PO ASDIR PRN #10 tablet PRN Reason: Pantoprazole Sodium [Protonix [address] Tablet] 40 mg PO QAM 30 Days #30 tablet. Home Medications: Amlodipine Besylate/Benazepril [Lotrel 5-20 mg Capsule] 1 cap PO DAILY 04/18/19 Bupropion HCl [Bupropion HCl Sr] 150 mg PO Q12 04/18/19 Gabapentin [Neurontin 300 mg Capsule] 900 mg PO Q8 04/18/19 Hydroxyzine Pamoate [Vistaril 25 mg Capsule] 25 mg PO BID 04/18/19 Hydroxyzine Pamoate [Vistaril 25 mg Capsule] 50 mg PO QHS 04/18/19 Melatonin [Melatonin 3 mg Tablet] 6 mg PO QHS 04/18/19 Trazodone HCl [Desyrel 50 mg Tablet] 50 mg PO QHS 04/18/19 Pantoprazole Sodium [Protonix [address] Tablet] 40 mg PO QAM 30 Days #30 tablet. 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 Diagnosis severe antral gastritis small sliding hiatal hernia and mild reflux esophagitis. Surgery recommended proton pump inhibitor and Carafate with follow-up back in the office in 2 to 3 weeks Patient was informed of these results and treatment plan Physical Exam Vital Signs: Temp Pulse Resp BP Pulse Ox 98.6 F 81 18 147/96 H 98 04/19/19 14:31 04/19/19 14:31 04/19/19 14:31 04/19/19 14:31 04/19/19 14:31 Intake & Output 04/18/19 04/19/19 04/20/19 06:59 06:59 06:59 Intake Total 1000 1900 1128 Output Total 2400 Balance 1000 -500 1128 Weight 107 kg 110.6 kg General appearance: PRESENT: no acute distress, well-developed, well-nourished Respiratory exam: PRESENT: clear to auscultation skyler. ABSENT: rales, rhonchi, wheezes Cardiovascular exam: PRESENT: RRR. ABSENT: diastolic murmur, rubs, systolic murmur GI/Abdominal exam: PRESENT: normal bowel sounds, soft. ABSENT: distended, guarding, mass, organolmegaly, rebound, tenderness Neurological exam: PRESENT: alert, awake, oriented to person, oriented to place, oriented to time, oriented to situation, CN II-XII grossly intact. ABSENT: motor sensory deficit Psychiatric exam: PRESENT: appropriate affect, normal mood. ABSENT: homicidal ideation, suicidal ideation Results Laboratory Results: 04/19/19 07:40 04/19/19 07:40 04/19/19 04/19/19 07:40 07:40 WBC 6.5 RBC 4.12 Hgb 11.9 L Hct 35.3 L MCV 86 MCH 29.0 MCHC 33.8 RDW 14.4 H Plt Count 283 Seg Neutrophils % 66.4 Lymphocytes % 23.6 Monocytes % 8.2 Eosinophils % 1.0 Basophils % 0.8 Absolute Neutrophils 4.3 Absolute Lymphocytes 1.5 Absolute Monocytes 0.5 Absolute Eosinophils 0.1 Absolute Basophils 0.1 Sodium 135.9 L Potassium 3.3 L Chloride 98 Carbon Dioxide 27 Anion Gap 11 BUN 5 L Creatinine 0.76 Est GFR ( Amer) > 60 Est GFR (Non-Af Amer) > 60 Glucose 81 Calcium 9.0 Total Bilirubin 0.5 AST 29 Alkaline Phosphatase 89 Total Protein 6.2 L Albumin 3.7 Impressions: Chest X-Ray 04/17/19 21:22 IMPRESSION: Negative chest copyright 2011 [employer]- All Rights Reserved Abdomen Ultrasound 04/18/19 00:00 IMPRESSION: NORMAL ABDOMINAL ULTRASOUND. Qualifiers - * PATIENT BEING DISCHARGED WITH ANY OF THE FOLLOWING DIAGNOSIS: No Acute Heart Failure - Is this a Heart Failure Patient?: No Plan Discharge Plan: Patient was discharged from the care of surgery on 820 following the upper endoscopy. They felt that the nausea and vomiting was secondary to the severe gastritis. Her gallbladder ultrasound was normal. They recommended continuing the proton pump inhibitor and Carafate at the time of discharge with follow-up at their office in 2 to 3 weeks. Patient was discharged home medically stable Time Spent: Greater than 30 Minutes
== END 2019-04-19 16:22 | disposition home or self-care (01) | DRG 379 ==
LOC: ER 20:11 → EH 04-18 03:18 → 3S 04-18 06:23
PROVIDERS: ADMIT Family Medicine; ATTEND Family Medicine
PROC: 0DD78ZX Extraction of Stomach, Pylorus, Via Natural or Artificial Opening Endoscopic, Diagnostic (ICD-10-PCS; 2019-04-18)
PROC: 0DD38ZX Extraction of Lower Esophagus, Via Natural or Artificial Opening Endoscopic, Diagnostic (ICD-10-PCS; principal; 2019-04-18 12:30)
DX: K29.51 Unspecified chronic gastritis with bleeding (principal); K44.9 Diaphragmatic hernia without obstruction or gangrene; K21.0 Gastro-esophageal reflux disease with esophagitis; R11.2 Nausea with vomiting, unspecified; I10 Essential (primary) hypertension; G43.909 Migraine, unspecified, not intractable, without status migrainosus; F41.8 Other specified anxiety disorders; M54.89 Other dorsalgia; M51.26 Other intervertebral disc displacement, lumbar region; Z87.820 Personal history of traumatic brain injury
CPT/HCPCS: 36415; 43239; 71046; 731; 76700; 80053; 81001; 81025; 83051; 83690; 85025; 86850; 86900; 86901; 88305; 88342; 96361; 96374; 99285; J2250; J2405; J2550; J2704; J3490; J7030; J7050; S0028; S0119; S0164

== ENCOUNTER 2020-04-27 17:01 | Emergency (ER) | payer OTHER ==
[2020-04-27] MEDS ORDERED: ONDANSETRON HCL INJ/PF 4 MG/2 ML SDV IV ONE (19:47)
[2020-04-27 20:29] LABS: ABSOLUTE BASOPHILS # (AUTO) 0.1 10^3/uL (0.0-0.2); ABSOLUTE MONOCYTES (AUTO) 0.5 10^3/uL (0.1-1.4); EOSINOPHILS % (AUTO) 0.2 % (0-6); MEAN CORPUSCULAR HGB CONC 33.6 g/dL (32.0-36.0); MEAN CORPUSCULAR VOLUME 86 fl (80-97); TOTAL CELLS COUNTED % (AUTO) 100 %
[2020-04-27 20:33] LABS: ABSOLUTE LYMPHOCYTES (AUTO) 1.7 10^3/uL (0.5-4.7); ABSOLUTE NEUT (AUTO) 5.1 10^3/uL (1.7-8.2); BASOPHILS % (AUTO) 1.4 % (0-2); HEMATOCRIT 41.1 % (36.0-47.0); HEMOGLOBIN 13.8 g/dL (12.0-15.5); MONOCYTES % (AUTO) 6.8 % (3-13); PLATELET COUNT 356 10^3/uL (150-450); RED BLOOD COUNT 4.76 10^6/uL (3.72-5.28); RED CELL DISTRIBUTION WIDTH 14.8 % (11.5-14.0); SEGMENTED NEUTROPHILS % (AUTO) 68.6 % (42-78); WHITE BLOOD COUNT 7.5 10^3/uL (4.0-10.5)
[2020-04-27 20:50] LABS: ALBUMIN 4.6 g/dL (3.5-5.0); ALKALINE PHOSPHATASE 90 U/L (38-126); ANION GAP 8 (5-19); ASPARTATE AMINO TRANSFERASE 26 U/L (14-36); BILIRUBIN,DIRECT 0.3 mg/dL (0.0-0.4); BILIRUBIN,TOTAL 0.6 mg/dL (0.2-1.3); BLOOD UREA NITROGEN 19 mg/dL (7-20); CALCIUM 10.1 mg/dL (8.4-10.2); CARBON DIOXIDE 29 mmol/L (22-30); CHLORIDE 102 mmol/L (98-107); GLUCOSE 98 mg/dL (75-110); POTASSIUM 4.1 mmol/L (3.6-5.0); TOTAL PROTEIN 7.8 g/dL (6.3-8.2)
--- NOTE | 2020-04-27 21:02 | ER Document Report ---
ED General - General Chief Complaint: Nausea/Vomiting/Diarrhea Stated Complaint: CHILLS/VOMITING/BODY ACHES Time Seen by Provider: 04/27/20 20:08 Primary Care Provider: [facility] [Provider Group] - Follow up as needed Mode of Arrival: Ambulatory Information source: Patient Notes: Patient is a 44-year-old female comes emergency room complaining of nausea vomiting diarrhea. Patient states that had started proximally 2 to 3 days ago. She has vomited at least 12 times a day with diarrhea at the same time. She also states that her whole body aches she has had cold chills but has not taken her temperature she does not have a thermometer. Patient does state that she went to [place] the end of February there family members tested positive for COVID-19. Patient was tested while in [place] and was negative. She came home the first week of March. Vital signs on arrival here today show a heart rate of 101 bpm. Blood pressure 128/79, respiratory rate of 20, sat 98% on room air. And a temp of 98.5. She has a past medical history pertinent for hypertension, hypercholesterolemia, anxiety, depression. She ate last on this past . Last menstrual period was around April 17. The only surgery patient has had in the past is a lap for a ovarian cyst on the left side. Patient also has a history of migraines with photosensitivity. Patient stated she is having both vomiting and diarrhea at the same time. She also states that she has a headache with this. Her headaches are her normal migraine presentation. TRAVEL OUTSIDE OF THE [place] IN LAST 30 DAYS: No - HPI Onset: Other - 3 days Onset/Duration: Gradual Quality of pain: Burning, Cramping, Sharp Pain Level: 4 Associated symptoms: Body/muscle aches, Chills, Diarrhea, Headache, Nausea, Vomiting. denies: Rhinnorhea, Sinus pain/drainage, Shortness of breath, Sore throat Exacerbated by: Denies Relieved by: Denies Similar symptoms previously: Yes Recently seen / treated by doctor: No - Related Data Allergies/Adverse Reactions: No Known Allergies Allergy (Verified 04/16/19 09:25) Past Medical History - General Information source: Patient - Social History Smoking Status: Current Every Day Smoker Chew tobacco use (# tins/day): No Frequency of alcohol use: None Drug Abuse: None Lives with: Family Family History: Malignancy - Of breast cancer in her mother - Past Medical History Cardiac Medical History: Reports: Hx Hypertension Pulmonary Medical History: Denies: Hx Tuberculosis Renal/ Medical History: Denies: Hx Peritoneal Dialysis Musculoskeletal Medical History: Reports Hx Musculoskeletal Trauma Psychiatric Medical History: Denies: Hx Depression Traumatic Medical History: Reports: Hx Traumatic Brain Injury Past Surgical History: Reports: Hx Gynecologic Surgery - ovarian cyst, Other - Laparoscopic left ovarian cystectomy that was benign - Immunizations Hx Diphtheria, Pertussis, Tetanus Vaccination: Yes Review of Systems - Review of Systems Constitutional: See HPI, Chills EENT: See HPI Cardiovascular: No symptoms reported Respiratory: No symptoms reported Gastrointestinal: See HPI, Abdominal pain, Diarrhea, Nausea, Vomiting Genitourinary: No symptoms reported Female Genitourinary: No symptoms reported Musculoskeletal: No symptoms reported Skin: No symptoms reported Hematologic/Lymphatic: No symptoms reported Neurological/Psychological: Headaches -: Yes All other systems reviewed and negative Physical Exam - Vital signs Vitals: Temp Pulse Resp BP Pulse Ox 98.5 F 101 H 20 128/79 H 98 04/27/20 18:07 04/27/20 18:07 04/27/20 18:07 04/27/20 18:07 04/27/20 18:07 Interpretation: Hypertensive, Tachycardic - Notes Notes: PHYSICAL EXAMINATION: GENERAL: Patient is a well-nourished well-developed 44-year-old morbidly obese female who is in no apparent distress on physical exam does appear somewhat uncomfortable. HEAD: Atraumatic, normocephalic. EYES: Pupils equal round and reactive to light, extraocular movements intact, conjunctiva are normal. ENT: Nares patent, oropharynx clear without exudates. Moist mucous membranes. NECK: Normal range of motion, supple without lymphadenopathy LUNGS: Breath sounds clear to auscultation bilaterally and equal. No wheezes rales or rhonchi. HEART: Tachycardic rate and rhythm without murmurs ABDOMEN: Examination patient's abdomen shows bowel sounds to be present all 4 quads although they are moderately quiet. She is diffusely tender to palpation and percussion in all quadrants. Nonspecific tenderness noted. No real peritoneal signs are found at this time. Female : deferred Musculoskeletal: Normal range of motion, no pitting or edema. No cyanosis. NEUROLOGICAL: Normal speech, normal gait. Normal sensory, motor exams PSYCH: Normal mood, normal affect. SKIN: Warm, Dry, normal turgor, no rashes or lesions noted. Course - Re-evaluation Re-evalutation: 04/27/20 21:03 On physical examination patient's room found patient have a large bag that she was caring with her with a 1 gallon water bottle that was three quarters empty. Patient did inform me she is not keeping anything down yet the water bottle is almost empty. When I informed her she does not need to drink any more fluids she was slightly upset. 04/27/20 23:55 Patient's labs came back normal with a CT of her abdomen pelvis normal. Urine was completely clean. At this point will send patient home. We will do a COVID test since patient had direct contact with known people tested positive. She is on disability so she does not work and does not need a note. She will self isolate. - Vital Signs Vital signs: Temp Pulse Resp BP Pulse Ox 98.5 F 101 H 20 128/79 H 98 04/27/20 18:07 04/27/20 18:07 04/27/20 18:07 04/27/20 18:07 04/27/20 18:07 - Laboratory Result Diagrams: 04/27/20 20:05 04/27/20 20:05 Laboratory results interpreted by me: 04/27/20 04/27/20 20:05 21:34 RDW 14.8 H Urine Protein 100 H Urine Ketones 80 H Urine Urobilinogen 2.0 H Urine Ascorbic Acid 40 H Discharge - Discharge Clinical Impression: Nausea & vomiting Qualifiers: Vomiting type: unspecified Vomiting Intractability: non-intractable Qualified Code(s): R11.2 - Nausea with vomiting, unspecified Condition: Stable Disposition: HOME, SELF-CARE Instructions: Acetaminophen, Antinausea Medication ([facility]), Viral Syndrome ([facility]), Vomiting ([facility]) Additional Instructions: As we discussed your labs and CT were normal. We will test you for the coronavirus because you had exposure up in [place]. So home and self isolate continuously wear a mask if you go out or having people into the house. Will place you on some Reglan for the nausea and vomiting. Since that Zofran is not working for you this should help. You can actually combine the 2 if you need to. Follow-up with your primary care provider on Wednesday. Should you have any concerns or problems are are unable to keep any food or fluids down with the medications return to ER for reevaluation. Prescriptions: Metoclopramide HCl [Reglan 10 mg Tablet] 1 - 2 tab PO ASDIR PRN #25 tablet PRN Reason: Forms: Smoking Cessation Education, Elevated Blood Pressure Referrals: [facility] [Provider Group] - Follow up as needed
[2020-04-27 22:10] LABS: APPEARANCE,URINE SLIGHTLY-CLOUDY; BILIRUBIN,URINE NEGATIVE (NEGATIVE); COLOR,URINE AMBER; GLUCOSE, URINE NEGATIVE (NEGATIVE); KETONES,URINE 80 mg/dL (NEGATIVE); LEUKOCYTE ESTERASE,URINE NEGATIVE (NEGATIVE); NITRITE,URINE NEGATIVE (NEGATIVE); PROTEIN,URINE 100 mg/dL (NEGATIVE); URINE SPECIFIC GRAVITY 1.032
[2020-04-27 22:15] LABS: URINE AMPHETAMINES SCREEN NEGATIVE; URINE BARBITURATES SCREEN NEGATIVE; URINE BENZODIAZEPINES SCREEN NEGATIVE; URINE COCAINE SCREEN NEGATIVE; URINE MARIJUANA (THC) SCREEN NEGATIVE; URINE METHADONE SCREEN NEGATIVE; URINE PHENCYCLIDINE SCREEN NEGATIVE
--- NOTE | 2020-04-27 23:04 | RADIOLOGY REPORT (SQ) ---
CT ABDOMEN AND PELVIS WITHOUT INTRAVENOUS CONTRAST: 04/27/2020 10:01 PM CDT HISTORY: 44-year old with abdominal pain and nausea. COMPARISON: None available TECHNIQUE: Axial contiguous images were obtained from the lung bases to the proximal femurs without intravenous contrast administered. Sagittal and coronal reconstructions were also obtained and reviewed. This exam was performed according to our departmental dose-optimization program, which includes automated exposure control, adjustment of the mA and/or KV according to the patient's size and/or use of iterative reconstruction technique. FINDINGS: No focal consolidative airspace opacities are seen. No discrete pleural effusions are seen. Evaluation of the solid organs is limited by the lack of intravenous contrast. The visualized hepatic parenchyma demonstrates multiple small hypodensities which are mostly too small adequately characterize. These may represent small cysts or biliary hamartomas. The gallbladder demonstrates no evidence of calcified gallstones. The spleen and pancreas are normal in contour. The bilateral adrenal glands appear unremarkable. Both kidneys demonstrate no evidence of hydronephrosis. No renal or ureteral calculi are seen. The urinary bladder is mildly distended, and appears grossly unremarkable. The uterus is present. The stomach is not well distended. The small bowel loops appear unremarkable. No pericolonic inflammatory stranding is seen. The appendix appears unremarkable. There is no evidence of pneumoperitoneum or free fluid. The aorta and IVC appear normal in size. There is mild atherosclerotic calcification of aorta and into the iliac arteries. No significantly enlarged lymph nodes are seen in the abdomen or pelvis. Review of the bone show no evidence of any suspicious lytic or blastic lesions. IMPRESSION: No acute process is seen within the abdomen or pelvis.
[2020-04-27] MEDS ORDERED: METOCLOPRAMIDE HCL INJ/PF 10 MG/2 ML SDV IV ONE (23:56)
[2020-04-28 01:08] VITALS: BP 138/80
== END 2020-04-28 01:07 | disposition home or self-care (01) ==
LOC: ER 17:01
DX: R11.2 Nausea with vomiting, unspecified (principal); R19.7 Diarrhea, unspecified; M79.10 Myalgia, unspecified site; R51 Headache; F17.200 Nicotine dependence, unspecified, uncomplicated; I10 Essential (primary) hypertension; F41.9 Anxiety disorder, unspecified; F32.9 Major depressive disorder, single episode, unspecified; Z20.828 Contact with and (suspected) exposure to other viral communicable diseases
CPT/HCPCS: 99285; 96374; 96375; 36415; 85025; 87635; 81025; 80053; 81001; 80307; 74176; J2765; J2405; C9803

== ENCOUNTER 2020-06-23 08:29 | Emergency (ER) | payer OTHER ==
[2020-06-23] MEDS ORDERED: ONDANSETRON HCL INJ/PF 4 MG/2 ML SDV IV ONE (09:36)
[2020-06-23] MEDS ORDERED: RINGERS SOLUTION,LACTATED 2,000 ML IV ONE (09:36)
[2020-06-23 09:38] LABS: APPEARANCE,URINE SLIGHTLY-CLOUDY; BILIRUBIN,URINE NEGATIVE (NEGATIVE); COLOR,URINE AMBER; GLUCOSE, URINE NEGATIVE (NEGATIVE); KETONES,URINE 80 mg/dL (NEGATIVE); LEUKOCYTE ESTERASE,URINE TRACE (NEGATIVE); NITRITE,URINE NEGATIVE (NEGATIVE); PROTEIN,URINE 100 mg/dL (NEGATIVE); URINE SPECIFIC GRAVITY 1.029
[2020-06-23 10:16] LABS: A TYPE INFLUENZA AG NEGATIVE (NEGATIVE); B INFLUENZA AG NEGATIVE (NEGATIVE)
[2020-06-23 10:34] LABS: ABSOLUTE BASOPHILS # (AUTO) 0.1 10^3/uL (0.0-0.2); ABSOLUTE LYMPHOCYTES (AUTO) 1.1 10^3/uL (0.5-4.7); ABSOLUTE MONOCYTES (AUTO) 0.5 10^3/uL (0.1-1.4); ABSOLUTE NEUT (AUTO) 6.2 10^3/uL (1.7-8.2); BASOPHILS % (AUTO) 0.8 % (0-2); EOSINOPHILS % (AUTO) 0.1 % (0-6); HEMATOCRIT 41.8 % (36.0-47.0); HEMOGLOBIN 14.2 g/dL (12.0-15.5); LYMPHOCYTES % (AUTO) 13.6 % (13-45); MEAN CORPUSCULAR HEMOGLOBIN 29.1 pg (27.0-33.4); MEAN CORPUSCULAR HGB CONC 33.9 g/dL (32.0-36.0); MEAN CORPUSCULAR VOLUME 86 fl (80-97); MONOCYTES % (AUTO) 6.7 % (3-13); PLATELET COUNT 302 10^3/uL (150-450); RED BLOOD COUNT 4.87 10^6/uL (3.72-5.28); RED CELL DISTRIBUTION WIDTH 15.1 % (11.5-14.0); SEGMENTED NEUTROPHILS % (AUTO) 78.8 % (42-78); TOTAL CELLS COUNTED % (AUTO) 100 %; WHITE BLOOD COUNT 7.8 10^3/uL (4.0-10.5)
[2020-06-23 10:50] LABS: ALKALINE PHOSPHATASE 98 U/L (38-126); ANION GAP 16 (5-19); ASPARTATE AMINO TRANSFERASE 27 U/L (14-36); BILIRUBIN,DIRECT 0.4 mg/dL (0.0-0.4); BILIRUBIN,TOTAL 0.6 mg/dL (0.2-1.3); BLOOD UREA NITROGEN 19 mg/dL (7-20); CALCIUM 10.9 mg/dL (8.4-10.2); CARBON DIOXIDE 27 mmol/L (22-30); CHLORIDE 99 mmol/L (98-107); GLUCOSE 105 mg/dL (75-110); POTASSIUM 3.8 mmol/L (3.6-5.0); TOTAL PROTEIN 8.2 g/dL (6.3-8.2)
[2020-06-23] MEDS ORDERED: METOCLOPRAMIDE HCL INJ/PF 10 MG/2 ML SDV IV ONE (12:47)
--- NOTE | 2020-06-23 12:51 | ER Document Report ---
ED GI/ - General Chief Complaint: Nausea/Vomiting/Diarrhea Stated Complaint: VOMITING Time Seen by Provider: 06/23/20 09:16 Primary Care Provider: [facility] [Provider Group] - Follow up as needed Notes: Patient is a 44-year-old female who presents emergency department with nausea and vomiting that started 3 days ago. [facility] When she got home, she felt nauseated. She also had diarrhea. She also reports that she had body aches and chills and dysuria. Patient attempted to Pepto- Bismol for her symptoms, but continues to vomit. Denies any pain. Denies any contact with anybody who has tested positive for COVID-19. TRAVEL OUTSIDE OF THE [place] IN LAST 30 DAYS: No - Related Data Allergies/Adverse Reactions: No Known Allergies Allergy (Verified 04/16/19 09:25) Past Medical History - Social History Smoking Status: Current Every Day Smoker Chew tobacco use (# tins/day): No Frequency of alcohol use: None Drug Abuse: None Family History: Malignancy - Of breast cancer in her mother - Past Medical History Cardiac Medical History: Reports: Hx Hypercholesterolemia, Hx Hypertension Pulmonary Medical History: Denies: Hx Tuberculosis Neurological Medical History: Reports: Hx Migraine Renal/ Medical History: Denies: Hx Peritoneal Dialysis Musculoskeletal Medical History: Reports Hx Musculoskeletal Trauma Psychiatric Medical History: Reports: Hx Depression - anxiety Traumatic Medical History: Reports: Hx Traumatic Brain Injury Past Surgical History: Reports: Hx Gynecologic Surgery - ovarian cyst, Other - Laparoscopic left ovarian cystectomy that was benign - Immunizations Hx Diphtheria, Pertussis, Tetanus Vaccination: Yes Review of Systems - Review of Systems Notes: REVIEW OF SYSTEMS: CONSTITUTIONAL : Denies recent illness. Denies recent unintentional weight loss. See HPI. EENT: Denies eye, ear, throat, or mouth pain, discharge, or symptoms. Denies nasal or sinus congestion. CARDIOVASCULAR: Denies chest pain. RESPIRATORY: Denies shortness of breath, cough, congestion, difficulty b reathing, or wheezing. GASTROINTESTINAL: See HPI. GENITOURINARY: Denies difficulty urinating, burning, blood in urine, urgency or frequency. MUSCULOSKELETAL: Denies neck and back pain. Denies joint pain or swelling. SKIN: Denies rash, itchiness, or lesions HEMATOLOGIC : Denies easy bruising or bleeding. LYMPHATIC: Denies swollen, painful, enlarged glands. NEUROLOGICAL: Denies no numbness or tingling denies weakness. Denies headache. Denies altered mental status. Denies alteration in speech. PSYCHIATRIC: Denies stress, anxiety, alteration in sleep patterns, or depression. All other systems reviewed and negative. Physical Exam - Vital signs Vitals: Temp Pulse Resp BP Pulse Ox 97.8 F 95 16 142/101 H 97 06/23/20 08:58 06/23/20 08:58 06/23/20 08:58 06/23/20 08:58 06/23/20 08:58 - Notes Notes: PHYSICAL EXAMINATION: GENERAL: Appears well, healthy, well-nourished, no acute distress. HEAD: Normocephalic, atraumatic. EYES: PERRL, conjunctiva normal, all extraocular movements intact, sclera nonicteric ENT: Moist mucous membranes. NECK: Supple, no noticeable swelling, redness, rash. Normal range of motion. LUNGS: Equal breath sounds bilaterally and clear to auscultation. No wheezes rales or rhonchi. CARDIOVASCULAR: S1-S2, regular rate, regular rhythm. Radial pulses 2+, normal. ABDOMEN: Normoactive bowel sounds. Soft, nontender, no guarding, no rebound tenderness, and no masses palpated. EXTREMITIES: Normal strength and range of motion, no pitting or edema. No cyanosis. NEUROLOGICAL: Moves all extremities upon command. Strength 5/5 in all extremities. PSYCH: Normal mood, normal affect. SKIN: Warm, dry. No rash, lesions, ulcerations noted. Normal skin turgor. Course - Re-evaluation Re-evalutation: 06/23/20 12:47 Patient states that she does feel better after receiving IV fluids and Zofran. Hematology his unremarkable, other than mild left shift, most likely due to her vomiting. Chemistries are unremarkable. Urinalysis shows protein and ketones in the urine, consistent with her vomiting. She has trace leukocytes in the urine and 6 squamous cells which is slightly contaminated. Rapid strep and flu test are negative. The patient was evaluated during the global COVID-19 pandemic and that diagnosis was suspected/considered upon their initial presentation. Their evaluation, treatment and testing was consistent with current guidelines for patients who present with complaints or symptoms that may be related to COVID-19. Follow-up precautions were given. Verbal discharge instructions were given to the patient. They verbalized understanding. They are stable for discharge. - Vital Signs Vital signs: Temp Pulse Resp BP Pulse Ox 97.8 F 95 16 142/101 H 97 06/23/20 08:58 06/23/20 08:58 06/23/20 08:58 06/23/20 08:58 06/23/20 08:58 - Laboratory Result Diagrams: 06/23/20 10:10 06/23/20 10:10 Laboratory results interpreted by me: 06/23/20 06/23/20 06/23/20 09:19 10:10 10:10 RDW 15.1 H Seg Neutrophils % 78.8 H Calcium 10.9 H Urine Protein 100 H Urine Ketones 80 H Urine Urobilinogen 2.0 H Ur Leukocyte Esterase TRACE H Discharge - Discharge Clinical Impression: Suspected COVID-19 virus infection Nausea and vomiting Qualifiers: Vomiting type: unspecified Vomiting Intractability: unspecified Qualified Code(s): R11.2 - Nausea with vomiting, unspecified Condition: Stable Disposition: HOME, SELF-CARE Instructions: COVID-19 Guidance for Persons Under Investigation, Intravenous (IV) Fluids ([facility]), Viral Syndrome ([facility]) Additional Instructions: As a person under investigation for COVID-19, the [place] Department of Health and Human Services (division on public health) advises you to adhere to the following guidance until your test results are reported to you. If your test result is positive, you will receive additional information from your provider and your local health department at that time. Remain at home until you are cleared by the health provider or public health authorities. Keep a log of visitors to your home, notify any visitors to your home of your isolation status. If you plan to move to a new address or leave the [facility], notify the local health department in your County. Call your Doctor or seek care if you have an urgent medical need. Before seeking medical care, call him to get instructions from the provider before arriving at the medical office, clinic, or hospital. Notify them that you are being tested for the virus (COVID-19) so that arrangements can be made, as necessary, to prevent transmission to others in the healthcare setting. Next, notify the local health department in your county. You are also being sent home with Manuela to help with nausea and vomiting. Take as prescribed. Prescriptions: Metoclopramide HCl [Reglan 10 mg Tablet] 1 - 2 tab PO ASDIR PRN #25 tablet PRN Reason: Referrals: [facility] [Provider Group] - Follow up as needed
[2020-06-23 12:53] VITALS: BP 148/89
== END 2020-06-23 13:25 | disposition home or self-care (01) ==
LOC: ER 08:29
DX: R11.2 Nausea with vomiting, unspecified (principal); R19.7 Diarrhea, unspecified; M79.10 Myalgia, unspecified site; F17.200 Nicotine dependence, unspecified, uncomplicated; I10 Essential (primary) hypertension; Z20.828 Contact with and (suspected) exposure to other viral communicable diseases
CPT/HCPCS: 99284; 96361; 96374; 96375; 36415; 87070; 87880; 85025; 87635; 81025; 80053; 81001; 87804; J2765; J2405; J7120; C9803